=== PATIENT | female | born 1935 | race Caucasian/White ===

== ENCOUNTER 2017-05-23 13:36 | Inpatient (IN) | payer OTHER, MEDICARE ==
[~2017-05-23] VITALS: Ht 152.4 cm; Wt 113.9 kg
[2017-05-23] MEDS ORDERED: AMLODIPINE BESY10 M1 PO (13:48)
[2017-05-23] MEDS ORDERED: POTASSIUM CHLO20 ME2 PO (13:49)
[2017-05-23] MEDS ORDERED: LOSARTAN-HCTZ1 EAC2 PO (13:49)
[2017-05-23] MEDS ORDERED: FUROSEMIDE40 M1 PO (13:49)
[2017-05-23] MEDS ORDERED: BYSTOLIC10 M1 PO (13:49)
[2017-05-23] MEDS ORDERED: MYRBETRIQ50 M1 PO (13:52)
[2017-05-23] MEDS ORDERED: DEXAMETHASONE2 M1 PO (13:54)
[2017-05-23] MEDS ORDERED: CLONIDINE HCL0.3 M1 PO (13:54)
[2017-05-23] MEDS ORDERED: WARFARIN SODIUM3 M1 PO (13:55)
[2017-05-23] MEDS ORDERED: WARFARIN SODIUM1 M1 PO (13:56)
[2017-05-23] MEDS ORDERED: DOXAZOSIN MESYLA2 M1 PO (13:57)
[2017-05-23] MEDS ORDERED: PHENYTOIN SODI100 MG PO (13:57)
--- NOTE | 2017-05-23 14:12 | ED MVC/FALL/TRAUMA COMPLAINT ---
History of Present Illness General Chief Complaint: Fall Stated Complaint: BIBA FALL Source: patient, EMS Exam Limitations: clinical condition, poor historian Vital Signs & Intake/Output Vital Signs & Intake/Output Vital Signs Date Time Temp Pulse Resp B/P B/P Pulse O2 O2 Flow FiO2 Mean Ox Delivery Rate 05/23 1539 98.8 72 20 145/92 96 Room Air 05/23 1352 98.4 69 18 102/63 97 Room Air Allergies Uncoded Allergies: Allergy Other N Food Allergies NKA Med Allergies NKDA Reconcile Medications Amlodipine Besylate 10 MG TABLET 1 TAB PO DAILY HEART HEALTH (Reported) Clonidine HCl 0.3 MG TABLET 1 TAB PO QPM ANXIETY (Reported) Dexamethasone 2 MG TABLET 1 TAB PO DAILY AC INFLAMMATION (Reported) Doxazosin Mesylate 2 MG TABLET 1 TAB PO DAILY URINARY RETENTION (Reported) Furosemide 40 MG TABLET 1 TAB PO DAILY HEART HEALTH (Reported) Losartan/Hydrochlorothiazide (Losartan-Hctz 100-25 MG Tab) 100 MG-25 MG TABLET 1 TAB PO DAILY HTN (Reported) Mirabegron (Myrbetriq) 50 MG TAB.ER.24H 1 TAB PO DAILY BLADDER (Reported) Nebivolol HCl (Bystolic) 10 MG TABLET 1 TAB PO DAILY HTN (Reported) Phenytoin Sodium Extended 100 MG CAPSULE 3 CAP PO QPM ANTICONVULSANT ( Reported) Potassium Chloride 20 MEQ TAB.ER.PRT 1 TAB PO DAILY HEART HEALTH (Reported) Warfarin Sodium 3 MG TABLET 1 TAB PO DAILY HEART HEALTH (Reported) Warfarin Sodium 1 MG TABLET 0.5 TAB PO COUMADIN Sat HEART HEALTH ( Reported) Triage Note: BIBA FROM HOME, PATIENT IS ALERT X1, CONFUSED AND FORGETFUL AT TIMES. PER EMS PATIENT WAS AMBULATING AROUND HOME WITH ROLLING WALKER WHEN SHE BECAME WEAK AND LOWERED HERSELF TO THE GROUND. PATIENT DENIES HEAD, NECK OR BACK PAIN, DENIES LOC OR HITTING HEAD. NO OBVIOUS SIGNS OF TRAUMA TO HEAD/FACE. Triage Nurses Notes Reviewed? 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 Per family she has been having weakness with needing to sit on the ground on attempting to use the walker. It happened today but has been happening in the last few days. Today's fall was unwitnessed. She also has been more incontinent than usual. She was diagnosed with a UTI but the family has not picked up the prescription yet. No fever, chills. Robert does not offer a lot of information but answers yes or no. She responds no to questions. Past History Travel History Traveled to [place] past 21 day No Medical History Any Pertinent Medical History? see below for history Neurological: ? FRONTAL BRAIN TUMOR Cardiovascular: hypertension Pneumonia Vaccine: 10/16/08 Influenza Vaccine: 12/16/08 Psychosocial History Who do you live with Father Services at Home None What is your primary language Cook Islander Review of Systems Review of Systems Constitutional: Reports: malaise, weakness. Denies: chills, fever. Eyes: Reports: no symptoms. Ears, Nose, Throat, Mouth: Reports: no symptoms. Respiratory: Denies: cough, short of breath, sputum production. Cardiovascular: Denies: chest pain. Gastrointestinal/Abdominal: Denies: abdominal pain, diarrhea, vomiting. Genitourinary: Reports: no symptoms. Musculoskeletal: Reports: see HPI (RECURRENT FALLS). Skin: Reports: no symptoms. Neurological/Psychological: Reports: no symptoms. All Other Systems: Reviewed and Negative Physical Exam Physical Exam General Appearance: alert, awake, mild distress, moderate distress, obese Head: atraumatic, normal appearance Eyes: Bilateral: PERRL. Ears, Nose, Throat, Mouth: DRY MUCUS MEMBRANES Neck: normal inspection, supple, full range of motion Respiratory: normal breath sounds, chest non-tender, no respiratory distress Cardiovascular: regular rate/rhythm Gastrointestinal: soft, non-tender Neurologic/Psych: awake, alert, GENERALIZED WEAKNESS Progress Plan of Care: Orders Procedure Date/time Status Consistent Carbohydrate 1 05/24 B Active LACTIC ACID 05/23 1712 Active ED Holding Orders 05/23 1700 Active Admit to inpatient 05/23 1700 Active Vital Signs 05/23 1700 Active Patient Data 05/23 1652 Active Add-on Test (ER Only) 05/23 1511 Active Straight Cath 05/23 1412 Active CULTURE,URINE 05/23 1412 Active BLOOD CULTURE 05/23 1412 Active URINE DRUGS OF ABUSE 05/23 1412 Complete URINALYSIS 05/23 1412 Complete TROPONIN LEVEL 05/23 1412 Active PARTIAL THROMBOPLASTIN TIME 05/23 1412 Complete PROTHROMBIN TIME 05/23 141 Complete LACTIC ACID 05/23 141 Active DILANTIN 05/23 141 Active COMPREHENSIVE METABOLIC PANEL 05/23 141 Active CBC WITHOUT DIFFERENTIAL 05/24 1411 Active EKG 05/23 141 Active Current Medications Sig/James Start time Last Medication Dose Stop Time Status Admin Sodium Chloride 1,000 ML Q8H 05/23 1630 UNVr (Normal Saline 0.9%) Laboratory Tests 05/23/17 1530: Phenytoin 18.8 05/23/17 1530: Anion Gap 9, Estimated GFR > 60, BUN/Creatinine Ratio 33.8 H, Glucose 137 H, Lactic Acid Pending, Calcium 9.6, Total Bilirubin 0.6, AST 25, ALT 33, Alkaline Phosphatase 82, Troponin I < 0.01, Total Protein 7.0, Albumin 4.0, Globulin 3.0, Albumin/Globulin Ratio 1.3, PT 26.5 H, INR 2.41 H, APTT 37, Urine Opiates Screen < 100, Methadone Screen < 40, Barbiturate Screen < 60, Ur Phencyclidine Scrn < 6.00, Amphetamines Screen < 100, U Benzodiazepines Scrn < 85, Urine Cocaine Screen < 50, Urine Cannabis Screen 78.40 H, Urine Color YEL, Urine Clarity CLEAR, Urine pH 7.0, Ur Specific [place] 1.010, Urine Protein NEG, Urine Ketones NEG, Urine Nitrite POS H, Urine Bilirubin NEG, Urine Urobilinogen 0.2, Ur Leukocyte Esterase TRACE H, Ur Microscopic SEDIMENT EXAMINED, Urine RBC RARE , Urine WBC 3-5 H, Ur Epithelial Cells RARE, Urine Bacteria PACKD H, Urine Mucus RARE, Urine Hemoglobin NEG, Urine Glucose NEG Microbiology 05/23 153 URINE ROUT: Urine Culture - RECD 05/23 1530 BLOOD: Blood Culture - RECD 05/23 1505 BLOOD: Blood Culture - RECD Diagnostic Imaging: Viewed by Me: Radiology Read, CT Scan. Discussed w/RAD: Radiology Read, CT Scan. Radiology Impression: PATIENT: LUCHO RENEE PRESENT AGE: 82 PATIENT ACCOUNT NO: [id number] : 34 LOCATION: [facility] ORDERING PHYSICIAN: Nohemy Villeda MD SERVICE DATE: 05/23/17-1504 EXAM TYPE: CAT - CT HEAD WO IV CONTRAST EXAMINATION: CT HEAD WITHOUT CONTRAST CLINICAL INFORMATION: Meningioma. Rule out bleed. Multiple falls from home. COMPARISON: Brain MRI 01/16/2017. TECHNIQUE: Contiguous axial imaging was performed from the skull base to vertex without intravenous administration of contrast. This study is moderate to severely degraded by motion artifact. Some limited series were repeated however these repeat images are also motion degraded. DLP: 1561 mGy-cm FINDINGS: There is redemonstration of postoperative findings related to resection of frontal lobe meningioma. 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 As a result there is mass effect on the frontal horns which are partly effaced and posteriorly displaced. Compared to the prior MRI of 01/16/2017 mass effect on the frontal horns has increased although more detailed comparison of the mass and associated edema is difficult due to the severe motion degradation. As a result of the mass effect there is 3 mm of rightward midline shift at the level of the septum pellucidum. There is no intracranial hemorrhage or CT evidence of large territory infarction. The paranasal sinuses and mastoid air cells are grossly clear. IMPRESSION: 1. Moderate to severely motion degraded study. 2. Redemonstration of bifrontal meningioma which appears similar compared with 01/16/2017 with surrounding vasogenic edema. 3. Mass effect related to the tumor and edema causes worsening effacement of the bilateral frontal horns. There is 3 mm of rightward midline shift. 4. No intracranial hemorrhage or CT evidence of large territory infarction. DICTATED BY: Delio Penny MD DATE/TIME DICTATED:05/23/171604 NETWORK SUPPORT ENGINEER:JONATHON DATE/TIME TRANSCRIBED:05/23/171604 CONFIDENTIAL, DO NOT COPY WITHOUT APPROPRIATE AUTHORIZATION. <Electronically signed in Other Vendor System> SIGNED BY: Delio Penny MD 05/23/17 1619 CXR Impression: PATIENT: LUCHO RENEE PRESENT AGE: 82 PATIENT ACCOUNT NO: [id number] : 34 LOCATION: [facility] ORDERING PHYSICIAN: Nohemy Villeda MD SERVICE DATE: 05/23/17 EXAM TYPE: RAD - XRY-PORTABLE CHEST XRAY EXAMINATION: XR PORTABLE CHEST CLINICAL INFORMATION: Rule out pneumonia. Weakness. COMPARISON: Chest radiograph dated January 30, 2009. TECHNIQUE: Portable frontal view of the chest was obtained. FINDINGS: The cardiac silhouette is normal in size. There is atherosclerotic calcification of the aortic knob. The pulmonary vasculature appears within normal limits. No pneumonia. No pneumothorax or pleural effusion. Lung apices are obscured by the patient's chin. IMPRESSION: No significant change in the appearance of the heart or lungs when compared with prior study dated January 30, 2009. No acute disease. DICTATED BY: Chalo Cornelius MD DATE/TIME DICTATED:05/23/171608 NETWORK SUPPORT ENGINEER:JONATHON DATE/TIME TRANSCRIBED:05/23/171608 CONFIDENTIAL, DO NOT COPY WITHOUT APPROPRIATE AUTHORIZATION. <Electronically signed in Other Vendor System> SIGNED BY: Chalo Cornelius MD 05/23/171613 Departure Departure Time of Disposition: 1639 Disposition: STILL A PATIENT Condition: Stable Clinical Impression Primary Impression: UTI (urinary tract infection) Secondary Impressions: Weakness Referrals: Anai WILSON,Dennis Dominguez (PCP/Family) Departure Forms: Customer Survey General Discharge Information Admission Note Spoke With: Willian LIU,Sidra Documentation of Exam: Documentation of any treatments & extenuating circumstances including Concerns Regarding Discharge (functional status, medication knowledge or non-compliance, living conditions, etc.) that warrant an admission rather than observation: [ PATIENT WITH MULTIPLE FALLS ON COUMADIN, NON RESECATABLE MENINGIOMAS, PATIENT FELL TODAY WITH WALKER, MULTIPLE FALLS IN LAST 2 WEEKS. RECURRENT UTI'S PER PCP , WAS NOT ON PRESCRIBED ABX FOR PAST FEW DAYS, WILL REQUIRE IV ABX, FLUIDS,PT EVALUATION, CASE MANAGEMENT. UNABLE TO PERFORM ADL'S TO HER BASELINE, POSSIBLE SHORT TERM REHAB REQUIREMENT]
[2017-05-23 15:50] LABS: PT 26.5 SEC (9.4-12.5); PTT 37 SEC (25-37)
--- NOTE | 2017-05-23 16:14 | RADIOLOGY REPORT ---
EXAMINATION: XR PORTABLE CHEST CLINICAL INFORMATION: Rule out pneumonia. Weakness. COMPARISON: Chest radiograph dated January 30, 2009. TECHNIQUE: Portable frontal view of the chest was obtained. FINDINGS: The cardiac silhouette is normal in size. There is atherosclerotic calcification of the aortic knob. The pulmonary vasculature appears within normal limits. No pneumonia. No pneumothorax or pleural effusion. Lung apices are obscured by the patient's chin. IMPRESSION: No significant change in the appearance of the heart or lungs when compared with prior study dated January 30, 2009. No acute disease.
--- NOTE | 2017-05-23 16:19 | CT SCAN REPORT ---
EXAMINATION: CT HEAD WITHOUT CONTRAST CLINICAL INFORMATION: Meningioma. Rule out bleed. Multiple falls from home. COMPARISON: Brain MRI 01/16/2017. TECHNIQUE: Contiguous axial imaging was performed from the skull base to vertex without intravenous administration of contrast. This study is moderate to severely degraded by motion artifact. Some limited series were repeated however these repeat images are also motion degraded. DLP: 1561 mGy-cm FINDINGS: There is redemonstration of postoperative findings related to resection of frontal lobe meningioma. 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 As a result there is mass effect on the frontal horns which are partly effaced and posteriorly displaced. Compared to the prior MRI of 01/16/2017 mass effect on the frontal horns has increased although more detailed comparison of the mass and associated edema is difficult due to the severe motion degradation. As a result of the mass effect there is 3 mm of rightward midline shift at the level of the septum pellucidum. There is no intracranial hemorrhage or CT evidence of large territory infarction. The paranasal sinuses and mastoid air cells are grossly clear. IMPRESSION: 1. Moderate to severely motion degraded study. 2. Redemonstration of bifrontal meningioma which appears similar compared with 01/16/2017 with surrounding vasogenic edema. 3. Mass effect related to the tumor and edema causes worsening effacement of the bilateral frontal horns. There is 3 mm of rightward midline shift. 4. No intracranial hemorrhage or CT evidence of large territory infarction.
--- NOTE | 2017-05-23 17:07 | History & Physical ---
Prince LIU,Olegario 05/23/17 2060: General Information and HPI History of Present Illness: Ms. Hutchins is an 82-year-old female with past medical history of meningioma followed by Dr. Hand and hypertension who presents after fall. The patient was unable to provide a history. History is obtained from her daughter, Kirstin. Per her daughter, the patient has had a resection of a meningioma many years ago. The meningioma has since regrown and it is considered unresectable. Over the past 5 months, the daughter notes that the patient has had a slow cognitive decline and personality change. She was previously able to talk normally and have a conversation. She now does not talk much, sings continuously, and is often confused. The daughter also notes that the patient has had recurrent UTIs, about 1-2 per month, for the past 6 months. She also has been falling frequently , 2 times in the past week. In the past, the daughter notes that the tumor caused the patient to have lower extremity weakness. Today, the daughter brought in the patient for evaluation after an acute fall today. The patient was walking to her chair and her legs gave out. The patient does not ever express any complaints and has regular bowel movements. On interview today, the patient does not have any complaints. Allergies/Medications Allergies: Uncoded Allergies: Allergy Other N Food Allergies NKA Med Allergies NKDA Home Med list Amlodipine Besylate 10 MG TABLET 1 TAB PO DAILY HEART HEALTH (Reported) Clonidine HCl 0.3 MG TABLET 1 TAB PO QPM ANXIETY (Reported) Dexamethasone 2 MG TABLET 1 TAB PO DAILY AC INFLAMMATION (Reported) Doxazosin Mesylate 2 MG TABLET 1 TAB PO DAILY URINARY RETENTION (Reported) Furosemide 40 MG TABLET 1 TAB PO DAILY HEART HEALTH (Reported) Losartan/Hydrochlorothiazide (Losartan-Hctz 100-25 MG Tab) 100 MG-25 MG TABLET 1 TAB PO DAILY HTN (Reported) Mirabegron (Myrbetriq) 50 MG TAB.ER.24H 1 TAB PO DAILY BLADDER (Reported) Nebivolol HCl (Bystolic) 10 MG TABLET 1 TAB PO DAILY HTN (Reported) Phenytoin Sodium Extended 100 MG CAPSULE 3 CAP PO QPM ANTICONVULSANT ( Reported) Potassium Chloride 20 MEQ TAB.ER.PRT 1 TAB PO DAILY HEART HEALTH (Reported) Warfarin Sodium 3 MG TABLET 1 TAB PO DAILY HEART HEALTH (Reported) Warfarin Sodium 1 MG TABLET 0.5 TAB PO COUMADIN Sat HEART HEALTH ( Reported) Past History Travel History Traveled to [place] past 21 day No Medical History Neurological: ? FRONTAL BRAIN TUMOR EENT: NONE Cardiovascular: hypertension Respiratory: bronchitis Gastrointestinal: NONE Hepatic: NONE Renal: NONE Musculoskeletal: NONE Psychiatric: NONE Endocrine: NONE Blood Disorders: DVT Cancer(s): NONE SUPER[employer] WRAPPING RO[employer]/Reproductive: NONE Pneumonia Vaccine: 10/16/08 Influenza Vaccine: 12/16/08 Surgical History Surgical History: unobtainable Past Family/Social History Psychosocial History Services at Home: None ETOH Use: denies use Illicit Drug Use: denies illicit drug use Review of Systems Review of Systems Constitutional: Reports: no symptoms. EENTM: Reports: no symptoms. Cardiovascular: Reports: no symptoms. Respiratory: Reports: no symptoms. GI: Reports: no symptoms. Genitourinary: Reports: see HPI. Musculoskeletal: Reports: see HPI. Skin: Reports: no symptoms. Neurological/Psychological: Reports: see HPI. Hematologic/Endocrine: Reports: no symptoms. Immunologic/Allergic: Reports: no symptoms. All Other Systems: Reviewed and Negative Exam & Diagnostic Data Last 24 Hrs of Vital Signs/I&O Vital Signs Date Time Temp Pulse Resp B/P B/P Pulse O2 O2 Flow FiO2 Mean Ox Delivery Rate 05/23 1539 98.8 72 20 145/92 96 Room Air 05/23 1352 98.4 69 18 102/63 97 Room Air Intake & Output 05/23 1600 05/23 0800 05/23 0000 Intake Total Output Total 200 Balance -200 Output, Urine 200 Physical Exam General Appearance Alert, Cooperative, No Acute Distress, singing, occasionally answers questions HEENT Atraumatic, PERRLA, EOMI Cardiovascular Regular Rate, Normal S1, Normal S2 Lungs Clear to Auscultation, Normal Air Movement Abdomen Normal Bowel Sounds, Soft, No Tenderness Extremities chronic appearing leather-like skin changes with areas of hyperpigmentation on the bilateral lower extremities., large, edematous lower extremities Last 24 Hrs of Labs/Anil: Laboratory Tests 05/23/17 1705: Lactic Acid 1.8, CBC w Diff NO MAN DIFF REQ, RBC 4.49, MCV 97.1, MCH 32.4 H, MCHC 33.4, RDW 13.1, MPV 9.0, Gran % 74.8, Lymphocytes % 17.1 L, Monocytes % 6.8, Eosinophils % 1.0, Basophils % 0.3, Absolute Granulocytes 7.4 H, Absolute Lymphocytes 1.7, Absolute Monocytes 0.7 H, Absolute Eosinophils 0.1, Absolute Basophils 0 05/23/17 153: Phenytoin 18.8 05/23/17 153: Anion Gap 9, Estimated GFR > 60, BUN/Creatinine Ratio 33.8 H, Glucose 137 H, Lactic Acid Pending, Calcium 9.6, Total Bilirubin 0.6, AST 25, ALT 33, Alkaline Phosphatase 82, Troponin I < 0.01, Total Protein 7.0, Albumin 4.0, Globulin 3.0, Albumin/Globulin Ratio 1.3, PT 26.5 H, INR 2.41 H, APTT 37, Urine Opiates Screen < 100, Methadone Screen < 40, Barbiturate Screen < 60, Ur Phencyclidine Scrn < 6.00, Amphetamines Screen < 100, U Benzodiazepines Scrn < 85, Urine Cocaine Screen < 50, Urine Cannabis Screen 78.40 H, Urine Color YEL, Urine Clarity CLEAR, Urine pH 7.0, Ur Specific [place] 1.010, Urine Protein NEG, Urine Ketones NEG, Urine Nitrite POS H, Urine Bilirubin NEG, Urine Urobilinogen 0.2, Ur Leukocyte Esterase TRACE H, Ur Microscopic SEDIMENT EXAMINED, Urine RBC RARE , Urine WBC 3-5 H, Ur Epithelial Cells RARE, Urine Bacteria PACKD H, Urine Mucus RARE, Urine Hemoglobin NEG, Urine Glucose NEG Microbiology 05/23 1529 URINE ROUT: Urine Culture - RECD 05/23 1530 BLOOD: Blood Culture - RECD 05/23 1505 BLOOD: Blood Culture - RECD Assessment/Plan Assessment: Ms. Hutchins is an 82-year-old female with past medical history of meningioma followed by Dr. Hand, DVT on warfarin, and hypertension who presents after fall. On presentation, vital signs were T 98.4, HR 69, RR 18, BP 102/63, saturating 97 % on room air. Laboratories were significant for normal CBCs, chloride 97, monoxide 32, BUN 27, glucose 137, normal LFTs, troponin less than 0.01, INR 2.41. Urinalysis revealed positive nitrite, positive leukocyte esterase, 35 WBCs. Urine toxicology so positive cannabis and phenytoin in therapeutic range. Head CT showed redemonstration of bifrontal meningioma which appears similar to November study, mass effect related to tumor the 3 mm rightward midline shift, and no intracranial hemorrhage or CT evidence of large territory infarction. Chest x-ray revealed no acute process. She received 1 L normal saline and ceftriaxone in the emergency room. She will be admitted to general medicine and treated for the following problems: 1. Urinary tract infection 2. Fall 3. Bifrontal meningioma 4. Lower extremity edema #Urinary tract infection: Patient is asymptomatic but is unclear if she is able to express her complaints. She does have a mildly positive urinalysis and history of recurrent UTIs. -Renal ultrasound -Ceftriaxone -Follow urine culture -gentle IVF -Hold furosemide #Fall: Patient has a history of a meningioma and has been falling requently in the past couple weeks. Likely related to progression of her tumor in setting of deconditioning. -Neurology consult -PT evaluation -Fall precautions #Lower extremity edema: Patient has bilateral lower extremity edema with chronic skin changes. Patient is on warfarin as low probability of DVT but there was pain on exam. -Ultrasound lower extremities #Chronic medical problems: -Continue warfarin, daily INR -Continue other home medications DVT prophylaxis with warfarin Regular diet Full code As Ranked By This Provider Problem List: 1. UTI (urinary tract infection) Core Measures/Misc (12/02) Acute Coronary Syndrome ACS Diagnosis: No Congestive Heart Failure Congestive Heart Failure Diagnosis No Cerebrovascular Accident CVA/TIA Diagnosis: No VTE (View Protocol) VTE Risk Factors Age>40 No Mechanical VTE Prophylaxis d/t Medical Contraindication No VTE Pharm Prophylaxis d/t NA PharmProphylax ordered Sepsis (View protocol) Sepsis Present: No MargieAnkur 05/23/17 1729: Resident Review Statement Resident Statement: examined this patient, discussed with sales and marketing intern, agreed with sales and marketing intern, discussed with family, reviewed EMR data (avail), discussed with nursing , discussed with case mgmt, reviewed images, amended to note Other Findings: This is 82-year-old woman with multiple comorbidities who was brought in for worsening confusion and physical deconditioning, gait instability, and recurrent falls. Patient has a past medical history of benign meningioma status post suceesful surgical resection in 2008 and relapse of her tumer ( per CT in Jan, 2017), essential hypertension, bilateral lower extremity DVTs in 2008 on Coumadin and multiple falls. She lives with her daughter. Had limited ambulation uses walker; she is non-communicative and most of the HPI was obtained from the daughter over the phone. Per her daughter after relapse of her tumer in 2017, patient has experienced a progressive decline in her mental/cognitive capacity which was coupled with physical decline, multiple falls, and recurrent UTIs. For the past two weeks family noticed a rapid decline of her progressively declining functional and cognitive capacity. Daughter noticed a change in smell and color of the urine and inform the primary care physician who called in amoxicillin today that has not been picked up. She had another episode of fall when she was trying to stand up from her chair no head trauma was reported no seizure like activity no loss of consciousness. ROS: Not obtainable, refer to HPI; vital signs: Initial hypotensive in the emergency room which was corrected with 1 L of normal saline; Physical exam: Head and neck: Mucous membranes are dry, atraumatic, scar of the previous surgery for tumor resection, PERR; neck: No carotid bruit, no LAD; heart: S1-S2 no murmur, lungs: Decreased air entry; abdomen is soft no suprapubic tenderness no guarding; bilateral lower extremity 3+ edema, skin changes due to chronic edema, tenderness without localization no redness no warmth no skin breakage. Neuro exam is not obtainable patient is not alert and oriented and is not following verbal commands. Initially in the emergency room patient was hypotensive 102/63 was given multiple normal saline and blood pressure improved 145/92. Remained afebrile no tachycardia no respiratory distress. Pertinent data UA: Positive nitrates and positive leukocyte esterase; WBC 3-5; packed with Bacteria CT scan of the head: #1 boyfriend several meningioma; stable compared with 01/16/2017 surrounded by vasogenic edema #2 mass effect related to the tumor and edema causes worsening effacement of frontal horns #3 three mm rightward midline shift CBC: Normal limits; sodium 138, potassium 4 BUN 27 BUN/creatinine ratio 33, INR 2.41 Lactic acid levels are pending Troponin is negative Urine toxicology positive for cannabis Phenytoin level 18.8 Assessment 82-year-old woman with complicated past medical history was admitted for failure to thrive and cognitive decline, gait instability and fall. List of active problems # Failure to thrive, gait instability and fall: Most possibly secondary to recurrence of her men angioma. Recurrent UTI could be a contributory factor to drastic changes of her cognitive and physical capacity. # Recurrent UTI: Most possibly secondary to immobility and poor hygiene needs to rule out obstruction. # prerenal azothgemia: Poor oral intake in a terminally sick patients # essential hypertension # chronic lower extremity edema # history of provoked DVT: Reportedly worsening edema and tenderness and physical exam; immobility; consider ruling out recurrent DVT Plan * Admit to general medical floor * Fall precaution; seizure precaution; aspiration precaution * Continue all of her home antihypertensive medication except for furosemide 40 mg and encourage po intake * Gentle hydration with D5-1/2 half saline 1000 ml @ 75 mL per hour 1 L * PT evaluation * Continue phenytoin and dexamethasone * History of provoked DVT INR within therapeutic range continue warfarin continue warfarin 0.5 mg on Saturday and Saturday and 3 mg on Saturday and Saturday and ; * Reevaluate the need of chronic anticoagulation due to the fact that patient had a provoked DVT and has been anticoagulated for a proper amounts of time and additional risks due to risk of fall. * IV ceftriaxone 1000 mg every 12 hours pending urine culture and blood culture results * Obtain renal ultrasound to rule out obstruction * elevate lower extremity * Repeat biochemistry a CBC in the a.m. DVT prophylaxis- on warfarin Proper appearing pathway- avoids it did not extend narcotics FC
[2017-05-23 17:17] LABS: ABSOLUTE BASOPHIL COUNT 0 /CUMM (0.0-0.2); ABSOLUTE EOSINOPHIL COUNT 0.1 /CUMM (0.0-0.7); ABSOLUTE GRANULOCYTE CT 7.4 /CUMM (1.4-6.5); ABSOLUTE LYMPH COUNT 1.7 /CUMM (1.2-3.4); ABSOLUTE MONOCYTE COUNT 0.7 /CUMM (0.10-0.60); BASOPHIL % 0.3 % (0.0-2.0); GRANULOCYTE % 74.8 % (42.2-75.2); HEMATOCRIT 43.5 % (37-47); MEAN CORPUSCULAR HGB 32.4 PG (27.0-31.0); MEAN CORPUSCULAR HGB CONC 33.4 G/DL (33.0-37.0); MEAN CORPUSCULAR VOLUME 97.1 FL (81.0-99.0); PLATELET COUNT 233 /CUMM (130-400); RBC DISTRIBUTION WIDTH 13.1 % (11.5-14.5); RED BLOOD CELL CT 4.49 /CUMM (4.20-5.40); WHITE BLOOD CELL COUNT 9.9 /CUMM (4.8-10.8)
--- NOTE | 2017-05-23 18:05 | PN- Att Addend ---
Attending Addendum Attending Brief Note 82 y/o F with past medical history of meningioma followed by Dr. Hand and hypertension, previous history of DVT many years ago still remains on Coumadin with therapeutic INR today p/w fall. Patient Has been declining over the last 5 months. She has resection of her b/l meningiona in 2008, and 5 montys ago ahd recurrence of the meningioma. Since then she has a decline, more rapid over the last couple of weeks. She just felt very weak, almost letdown today while she was trying to get up and walk. Patient herself denies any complaints, any pain. Per daughter, Urine was smelling foul. Patient herself denies any fevers, chills, nausea, vomiting or any kind of pain. The daughter also told the ER doc that patient is getting cannabis for the treatment of these meningiomas. There is also some mass effect on the CT but this was also present in the previous imaging. Vital Signs Date Time Temp Pulse Resp B/P B/P Pulse O2 O2 Flow FiO2 Mean Ox Delivery Rate 05/23 1539 98.8 72 20 145/92 96 Room Air 05/23 1352 98.4 69 18 102/63 97 Room Air on exam; awake, confused, nad. cv; s1,s2, rrr resp; clear abd; soft, nt, bs+ ext; 2+ edema b/l with chronic venous stasis changes. Laboratory Tests 05/23 05/23 1705 1530 Chemistry Lactic Acid (0.7 - 2.1 mmol/L) 1.8 Hematology CBC w Diff NO MAN DIFF REQ WBC (4.8 - 10.8 /CUMM) 9.9 RBC (4.20 - 5.40 /CUMM) 4.49 Hgb (12.0 - 16.0 G/DL) 14.6 Hct (37 - 47 %) 43.5 MCV (81.0 - 99.0 FL) 97.1 MCH (27.0 - 31.0 PG) 32.4 H MCHC (33.0 - 37.0 G/DL) 33.4 RDW (11.5 - 14.5 %) 13.1 Plt Count (130 - 400 /CUMM) 233 MPV (7.4 - 10.4 FL) 9.0 Gran % (42.2 - 75.2 %) 74.8 Lymphocytes % (20.5 - 51.1 %) 17.1 L Monocytes % (1.7 - 9.3 %) 6.8 Eosinophils % (0 - 5 %) 1.0 Basophils % (0.0 - 2.0 %) 0.3 Absolute Granulocytes (1.4 - 6.5 /CUMM) 7.4 H Absolute Lymphocytes (1.2 - 3.4 /CUMM) 1.7 Absolute Monocytes (0.10 - 0.60 /CUMM) 0.7 H Absolute Eosinophils (0.0 - 0.7 /CUMM) 0.1 Absolute Basophils (0.0 - 0.2 /CUMM) 0 Toxicology Phenytoin (10.0 - 20.0 ug/mL) 18.8 03/08 1530 Chemistry Sodium (137 - 145 mmol/L) 138 Potassium (3.5 - 5.1 mmol/L) 4.0 Chloride (98 - 107 mmol/L) 97 L Carbon Dioxide (22 - 30 mmol/L) 32 H Anion Gap (5 - 16) 9 BUN (7 - 17 mg/dL) 27 H Creatinine (0.5 - 1.0 mg/dL) 0.8 Estimated GFR (>60 ml/min) > 60 BUN/Creatinine Ratio (7 - 25 %) 33.8 H Glucose (65 - 99 mg/dL) 137 H Lactic Acid (0.7 - 2.1 mmol/L) Pending Calcium (8.4 - 10.2 mg/dL) 9.6 Total Bilirubin (0.2 - 1.3 mg/dL) 0.6 AST (14 - 36 U/L) 25 ALT (9 - 52 U/L) 33 Alkaline Phosphatase (<127 U/L) 82 Troponin I (< 0.11 ng/ml) < 0.01 Total Protein (6.3 - 8.2 g/dL) 7.0 Albumin (3.5 - 5.0 g/dL) 4.0 Globulin (1.9 - 4.2 gm/dL) 3.0 Albumin/Globulin Ratio (1.1 - 2.2 %) 1.3 Coagulation PT (9.4 - 12.5 SEC) 26.5 H INR (0.90 - 1.19) 2.41 H APTT (25 - 37 SEC) 37 Toxicology Urine Opiates Screen (>2000 NG/ML) < 100 Methadone Screen (>300 NG/ML) < 40 Barbiturate Screen (>200 NG/ML) < 60 Ur Phencyclidine Scrn (>25 NG/ML) < 6.00 Amphetamines Screen (>1000 NG/ML) < 100 U Benzodiazepines Scrn (>200 NG/ML) < 85 Urine Cocaine Screen (>300 NG/ML) < 50 Urine Cannabis Screen (>50 NG/ML) 78.40 H Urines Urine Color (YEL,AMB,STR) YEL Urine Clarity (CLEAR) CLEAR Urine pH (5.0 - 8.0) 7.0 Ur Specific [place] (1.001 - 1.035) 1.010 Urine Protein (NEG,<30 MG/DL) NEG Urine Ketones (NEG) NEG Urine Nitrite (NEG) POS H Urine Bilirubin (NEG) NEG Urine Urobilinogen (0.1 - 1.0 EU/dl) 0.2 Ur Leukocyte Esterase (NEG) TRACE H Ur Microscopic SEDIMENT EXAMINED Urine RBC (0 - 5 /HPF) RARE Urine WBC (0 - 2 /HPF) 3-5 H Ur Epithelial Cells (NONE,FEW) RARE Urine Bacteria (NEG/NONE) PACKD H Urine Mucus (FEW,NONE) RARE Urine Hemoglobin (NEG) NEG Urine Glucose (N MG/DL) NEG All imaging reviewed. EKG: Poor quality EKG but looks sinus. A/P; 82 y/o F with past medical history of meningioma followed by Dr. Hand, DVT on coumadin and hypertension will be admitted to medicine floor with a fall, failure to thrive and generalized weakness and some confusion. There is also question of UTI. Patient will be given gentle IV hydration. We will hold Lasix temporarily for now while she is getting IV hydration. She was given IV ceftriaxone in the emergency room for question of UTI. We can continue that and follow-up on cultures. If cultures are negative then this can be discontinued. Will obtain a lower extremity Doppler ultrasound bilateral. We will dose Coumadin according to the INR. Will continue the rest of her medications. Dilantin level therapeutic. We'll continue her Decadron. Neurology will be consulted. DVT prophylaxis: Patient on Coumadin with therapeutic INR. PT evaluation will be obtained. Patient might need placement in rehabilitation.
[2017-05-23 18:45] VITALS: BP 138/62
--- NOTE | 2017-05-23 21:48 | ULTRASOUND REPORT ---
EXAMINATION: US TRIPLEX OF LOWER EXTREMITIES, BILATERAL CLINICAL INFORMATION: Swelling of the bilateral lower extremities. DVT. COMPARISON: None TECHNIQUE: Color-flow triplex imaging with spectral analysis and compression Doppler were performed on the lower extremities. FINDINGS: The study was limited due to patient body habitus. The patient was not able to cooperate for imaging either. The patient could not tolerate compression of the inferior aspect of the left superficial femoral vein. Otherwise, respiratory variation, normal compression and augmented flow are noted throughout the lower extremities. The visualized common femoral vein, superficial femoral vein, profunda femoral vein, popliteal vein and midcalf peroneal and posterior tibial venous segments show no evidence of deep venous thrombosis. There is no Juarez's cyst. IMPRESSION: Limited scan, as described above, but no evidence of deep vein thrombosis within the lower extremities bilaterally.
--- NOTE | 2017-05-23 21:55 | ULTRASOUND REPORT ---
EXAMINATION: US RETROPERITONEAL COMPLETE (RENAL) CLINICAL INFORMATION: Recurrent urinary tract infections. COMPARISON: None TECHNIQUE: Real-time imaging of the kidneys and bladder. FINDINGS: RIGHT KIDNEY: 9.6 x 4.3 x 3.9 cm (SAG x AP x TRV). The kidney is normal in size, contour, and echogenicity. Renal cortical thickness is normal. 1 cm simple cyst of the right mid kidney. No calculi. No hydronephrosis. LEFT KIDNEY: 10.9 x 4.3 x 5.1 cm (SAG x AP x TRV). The kidney is normal in size, contour, and echogenicity. Renal cortical thickness is normal. No calculi or focal parenchymal lesions. No hydronephrosis. BLADDER: Bladder is collapsed and not well seen. Bilateral ureteral jets are not demonstrated. IMPRESSION: No hydronephrosis bilaterally. The urinary bladder is collapsed and not well seen. .
[2017-05-23 22:00] VITALS: BP 138/70
[2017-05-24 06:38] VITALS: BP 134/68
--- NOTE | 2017-05-24 06:49 | PN- Housestaff ---
See Addendum Subjective Follow-up For: UTI, fall Subjective: No overnight events. Patient is comfortable without any complaints this morning. Review of Systems Constitutional: Reports: no symptoms. EENTM: Reports: no symptoms. Cardiovascular: Reports: no symptoms. Respiratory: Reports: no symptoms. Gastrointestinal: Reports: no symptoms. Genitourinary: Reports: no symptoms. Musculoskeletal: Reports: no symptoms. Skin: Reports: no symptoms. Neurological/Psychological: Reports: no symptoms. Hematologic/Endocrine: Reports: no symptoms. Immunologic/Allergic: Reports: no symptoms. Objective Last 24 Hrs of Vital Signs/I&O Vital Signs Date Time Temp Pulse Resp B/P B/P Pulse O2 O2 Flow FiO2 Mean Ox Delivery Rate 05/24 0638 97.4 59 20 134/68 94 05/23 2200 98.1 73 20 138/70 95 Room Air 05/23 2129 73 138/70 05/23 1845 98.2 70 19 138/62 93 Room Air 05/23 1811 98.4 76 18 142/74 93 Room Air 05/23 1539 98.8 72 20 145/92 96 Room Air 05/23 1352 98.4 69 18 102/63 97 Room Air Intake & Output 05/24 0800 05/24 0000 05/23 1600 Intake Total 720 710 Output Total 200 Balance 720 710 -200 Intake, IV 600 350 Intake, Oral 120 360 Output, Urine 200 Patient 113.852 kg Weight Weight Bed scale Measurement Method Physical Exam General Appearance: Alert, Cooperative, No Acute Distress Skin: stable Cardiovascular: Regular Rate, Normal S1, Normal S2 Lungs: Clear to Auscultation Abdomen: Normal Bowel Sounds, Soft, No Tenderness Current Medications: Current Medications Sig/James Start time Last Medication Dose Route Stop Time Status Admin Amlodipine Besylate 10 MG DAILY 05/24 1000 AC PO Ceftriaxone Sodium 1,000 MG DAILY 05/24 1000 DC IV Ceftriaxone Sodium 1,000 MG Q12 05/24 1000 AC IV Ceftriaxone Sodium 0 .STK-MED ONE 05/23 1708 DC .ROUTE Ceftriaxone Sodium 1,000 MG ONCE ONE 05/23 1630 DC 05/23 IV 05/23 1631 1709 Clonidine 0.3 MG BID 05/23 2200 AC 05/23 PO 2129 Dexamethasone 1 MG DAILY 05/24 1000 DC PO Dexamethasone 2 MG DAILY 05/24 1000 AC PO Dextrose/Sodium 1,000 ML Q13H 05/23 1745 AC 05/24 Chloride IV 0528 Doxazosin Mesylate 2 MG AT BEDTIME 05/230 AC 05/23 PO 2129 Enoxaparin Sodium 40 MG DAILY 05/24 1000 CAN SC Hydrochlorothiazide 25 MG DAILY 05/24 1000 AC PO Losartan Potassium 100 MG DAILY 05/24 1000 AC PO Mirabegron 50 MG DAILY 05/24 1000 AC PO Nebivolol 20 MG DAILY 05/24 1000 AC PO Phenytoin 100 MG Q8 05/23 2200 AC 05/24 PO 0528 Sodium Chloride 1,000 ML Q8H 05/23 1630 DC 05/23 IV 1709 Warfarin Sodium 3 MG .STK-MED ONE 05/23 190 DC PO 05/23 190 Warfarin Sodium 3 MG COUMADIN 1700 ONE 05/23 1815 DC 05/23 PO 05/23 181 1904 Last 24 Hrs of Lab/Anil Results Last 24 Hrs of Labs/Mics: Laboratory Tests 05/23/17 170: Lactic Acid 1.8, CBC w Diff NO MAN DIFF REQ, RBC 4.49, MCV 97.1, MCH 32.4 H, MCHC 33.4, RDW 13.1, MPV 9.0, Gran % 74.8, Lymphocytes % 17.1 L, Monocytes % 6.8, Eosinophils % 1.0, Basophils % 0.3, Absolute Granulocytes 7.4 H, Absolute Lymphocytes 1.7, Absolute Monocytes 0.7 H, Absolute Eosinophils 0.1, Absolute Basophils 0 05/23/17 1530: Phenytoin 18.8 05/23/17 1530: Anion Gap 9, Estimated GFR > 60, BUN/Creatinine Ratio 33.8 H, Glucose 137 H, Calcium 9.6, Total Bilirubin 0.6, AST 25, ALT 33, Alkaline Phosphatase 82, Troponin I < 0.01, Total Protein 7.0, Albumin 4.0, Globulin 3.0, Albumin/ Globulin Ratio 1.3, PT 26.5 H, INR 2.41 H, APTT 37, Urine Opiates Screen < 100 , Methadone Screen < 40, Barbiturate Screen < 60, Ur Phencyclidine Scrn < 6.00, Amphetamines Screen < 100, U Benzodiazepines Scrn < 85, Urine Cocaine Screen < 50, Urine Cannabis Screen 78.40 H, Urine Color YEL, Urine Clarity CLEAR, Urine pH 7.0, Ur Specific [place] 1.010, Urine Protein NEG, Urine Ketones NEG, Urine Nitrite POS H, Urine Bilirubin NEG, Urine Urobilinogen 0.2, Ur Leukocyte Esterase TRACE H, Ur Microscopic SEDIMENT EXAMINED, Urine RBC RARE, Urine WBC 3 -5 H, Ur Epithelial Cells RARE, Urine Bacteria PACKD H, Urine Mucus RARE, Urine Hemoglobin NEG, Urine Glucose NEG Microbiology 05/23 1530 URINE ROUT: Urine Culture - RECD 05/23 1530 BLOOD: Blood Culture - RECD 05/23 1505 BLOOD: Blood Culture - RECD Assessment/Plan Assessment: Ms. Hutchins is an 82-year-old female with past medical history of meningioma followed by Dr. Hand, DVT on warfarin, and hypertension who presents after fall. Problem List: 1. Asymptomatic bacteriuria 2. Fall 3. Bifrontal meningioma 4. Lower extremity edema #Asymptomatic bacteriuria: Patient is asymptomatic. She does have a mildly positive urinalysis and history of recurrent UTIs. Renal ultrasound showed no hydronephrosis. -Stop antibiotics -Follow urine culture #Fall: Patient has a history of a meningioma and has been falling requently in the past couple weeks. Likely related to progression of her tumor in setting of deconditioning. She may be a candidate for radiation but this can be done as an outpatient. -Appreciate neurology recommendations -PT evaluation -Fall precautions -gentle IVF -Hold furosemide #Lower extremity edema: Patient has bilateral lower extremity edema with chronic skin changes. Lower external the ultrasound showed no DVT. -Continue to monitor #Chronic medical problems: -Continue warfarin, daily INR -Continue other home medications DVT prophylaxis with warfarin Regular diet Full code Problem List: 1. UTI (urinary tract infection) Pain Ratin Pain Location: no Pain Goal: Remain pain free Pain Plan: see a/p Tomorrow's Labs & Rationales: inr
[2017-05-24 07:56] LABS: PT 30.1 SEC (9.4-12.5)
[2017-05-24 08:15] LABS: ABSOLUTE BASOPHIL COUNT 0 /CUMM (0.0-0.2); ABSOLUTE EOSINOPHIL COUNT 0.3 /CUMM (0.0-0.7); ABSOLUTE LYMPH COUNT 2.3 /CUMM (1.2-3.4); EOSINOPHIL % 3.8 % (0-5); RED BLOOD CELL CT 3.64 /CUMM (4.20-5.40)
[2017-05-24 08:39] LABS: ABSOLUTE GRANULOCYTE CT 4.2 /CUMM (1.4-6.5); ABSOLUTE MONOCYTE COUNT 0.5 /CUMM (0.10-0.60); BASOPHIL % 0.5 % (0.0-2.0); GRANULOCYTE % 57.5 % (42.2-75.2); MEAN CORPUSCULAR HGB 32.8 PG (27.0-31.0); MEAN CORPUSCULAR HGB CONC 33.9 G/DL (33.0-37.0); MEAN CORPUSCULAR VOLUME 96.8 FL (81.0-99.0); MEAN PLATELET VOLUME 9.4 FL (7.4-10.4); PLATELET COUNT 169 /CUMM (130-400); RBC DISTRIBUTION WIDTH 12.6 % (11.5-14.5); WHITE BLOOD CELL COUNT 7.4 /CUMM (4.8-10.8)
[2017-05-24 08:48] LABS: HEMATOCRIT 35.2 % (37-47)
--- NOTE | 2017-05-24 10:42 | Discharge Summary ---
Visit Information Visit Dates Admission Date: 05/23/17 Discharge Date: 05/26/17 Hospital Course Course Attending Physician: Kenya Juárez MD Primary Care Physician: Anai WILSON,Dennis Dominguez Hospital Course: This is 82-year-old woman with multiple comorbidities who was brought in for worsening confusion and physical deconditioning, gait instability, and recurrent falls. 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 She lives with her daughter. She has limited ambulation and uses a walker; she is non-communicative. Per her daughter after relapse of her tumer in 2016, patient has experienced a progressive decline in her mental/cognitive capacity which was coupled with physical decline, multiple falls, and recurrent UTIs. For the past two weeks family noticed a rapid decline of her progressively declining functional and cognitive capacity. Daughter noticed a change in smell and color of the urine and inform the primary care physician who called in amoxicillin but was yet to pick it up whe patient has another episode of fall when she was trying to stand up from her chair so she was brought to the ER. No head trauma was reported, no seizure like activity and no loss of consciousness. Problem List 1. Bifrontal Meningioma Seems to be progressively worsening. Patient will need Neurolgy follow-up as out patient 2. Unsteady gait/Falls Likely related to progression of her tumor in setting of deconditioning Physical therapy was started in the hospital Patient will be going to the [facility] for rehab 3. 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 Asymptomatic bacteriuria Watched off antibiotics. 5. History of Bilateral LE DVTs Continue home dose of warfarin, INR was 2.99 Monitor INR regularly and dose coumain as needed 6. HTN Continue home medications Complications: none Allergies: Coded Allergies: No Known Allergies (05/24/17) Significant Procedures: EXAM TYPE: CAT - CT HEAD WO IV CONTRAST IMPRESSION: 1. Moderate to severely motion degraded study. 2. Redemonstration of bifrontal meningioma which appears similar compared with 01/16/2017 with surrounding vasogenic edema. 3. Mass effect related to the tumor and edema causes worsening effacement of the bilateral frontal horns. There is 3 mm of rightward midline shift. 4. No intracranial hemorrhage or CT evidence of large territory infarction. 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 Hand) and geriartrician in 1-2 weeks Medications at Discharge Discharge Medications: Continue taking these medications: Amlodipine Besylate (Amlodipine Besylate) 10 MG TABLET 1 Tablet ORAL DAILY Qty = 90 Nebivolol HCl (Bystolic) 10 MG TABLET 1 Tablet ORAL DAILY Qty = 180 Losartan/Hydrochlorothiazide (Losartan-Hctz 100-25 MG Tab) 100 MG-25 MG TABLET 1 Tablet ORAL DAILY Qty = 90 Furosemide (Furosemide) 40 MG TABLET 1 Tablet ORAL DAILY Qty = 90 Potassium Chloride (Potassium Chloride) 20 MEQ TAB.ER.PRT 1 Tablet ORAL DAILY Qty = 180 Mirabegron (Myrbetriq) 50 MG TAB.ER.24H 1 Tablet ORAL DAILY Qty = 4 Dexamethasone (Dexamethasone) 2 MG TABLET 1 Tablet ORAL DAILY BEFORE BREAKFAST Qty = 270 Clonidine HCl (Clonidine HCl) 0.3 MG TABLET 1 Tablet ORAL Every night Qty = 180 Warfarin Sodium (Warfarin Sodium) 3 MG TABLET 1 Tablet ORAL DAILY Warfarin Sodium (Warfarin Sodium) 1 MG TABLET 0.5 Tablet ORAL COUMADIN MOWEFR Doxazosin Mesylate (Doxazosin Mesylate) 2 MG TABLET 1 Tablet ORAL DAILY Qty = 90 Phenytoin Sodium Extended (Phenytoin Sodium Extended) 100 MG CAPSULE 3 Capsule ORAL Every night Qty = 270 Start taking the following new medications: Augmentin (Augmentin 500-125 Tablet) 500 MG-125 MG TABLET 500 Milligram ORAL TWICE DAILY Qty = 3 No Refills Comments: Last dose to be taken on 05/27/17 Copies To: Dennis Dobson
[2017-05-24 14:41] VITALS: BP 118/60
[2017-05-24 21:24] VITALS: BP 106/50
[2017-05-24 21:47] VITALS: BP 110/64
[2017-05-25 05:51] VITALS: BP 122/60
--- NOTE | 2017-05-25 08:10 | PN- Housestaff ---
Daniella LIU,Jan 05/25/17 0810: Subjective Follow-up For: UTI, fall Subjective: Patient was seen and examined at bedside. She was resting comfortably. She had no acute events overnight. She currently offers no complaints but is a poor historian. Nurse reports that she is incontinent of urine. Review of Systems Constitutional: Denies: chills, fever. EENTM: Reports: no symptoms. Cardiovascular: Reports: no symptoms. Respiratory: Reports: no symptoms. Gastrointestinal: Reports: no symptoms. Genitourinary: Reports: see HPI. Musculoskeletal: Reports: no symptoms. Objective Last 24 Hrs of Vital Signs/I&O Vital Signs Date Time Temp Pulse Resp B/P B/P Pulse O2 O2 Flow FiO2 Mean Ox Delivery Rate 05/25 0551 97.8 59 20 122/60 96 Room Air 05/24 2152 68 110/64 05/24 2147 110/64 05/244 98.1 68 17 106/50 94 Room Air 05/24 1441 97.7 60 20 118/60 94 Room Air 05/24 1102 74 130/70 05/24 0956 Room Air 05/24 0946 Room Air 05/24 0921 74 130/60 05/24 0921 74 130/60 05/24 0920 74 130/60 Intake & Output 05/25 1600 05/25 0800 05/25 0000 Intake Total 840 485 Output Total Balance 840 485 Intake, IV 600 245 Intake, Oral 240 240 Number 0 0 Bowel Movements Physical Exam General Appearance: Alert, Cooperative, No Acute Distress Skin Temp/Moisture Exam: Warm/Dry Sepsis Skin Exam (color): Normal for Ethnicity Cardiovascular: Regular Rate, Normal S1, Normal S2 Lungs: Clear to Auscultation, Normal Air Movement Abdomen: Normal Bowel Sounds, Soft, No Tenderness Extremities: BLE edema, 2+ pitting edema Current Medications: Current Medications Sig/James Start time Last Medication Dose Route Stop Time Status Admin Amlodipine Besylate 10 MG DAILY 05/24 1000 AC 05/24 PO 0921 Ceftriaxone Sodium 1,000 MG Q12 05/24 1000 CAN IV Clonidine 0.3 MG BID 05/23 2200 AC 05/24 PO 2152 Dexamethasone 2 MG DAILY 05/24 1000 AC 05/24 PO 0920 Dextrose/Sodium 1,000 ML Q13H 05/23 1745 AC 05/25 Chloride IV 0452 Doxazosin Mesylate 2 MG AT BEDTIME 05/23 2200 AC 05/24 PO 2152 Hydrochlorothiazide 25 MG DAILY 05/24 1000 AC 05/24 PO 0921 Losartan Potassium 100 MG DAILY 05/24 1000 AC 05/24 PO 0921 Mirabegron 50 MG DAILY 05/24 1000 AC 05/24 PO 0921 Nebivolol 20 MG DAILY 05/24 1000 AC 05/24 PO 1102 Phenytoin 100 MG Q8 05/23 2200 AC 05/25 PO 0452 Warfarin Sodium 3 MG COUMADIN 1700 05/24 1700 DC 05/24 PO 05/24 2359 1700 Last 24 Hrs of Lab/Anil Results Last 24 Hrs of Labs/Mics: Laboratory Tests 05/25/17 0618: PT Pending, INR Pending Assessment/Plan Assessment: Ms. Hutchins is an 82-year-old female with past medical history of meningioma followed by Dr. Hand, DVT on warfarin, and hypertension who presents after fall. Problem List: 1.UTI 2. Fall 3. Bifrontal meningioma 4. Lower extremity edema #UTI : Patient is asymptomatic however it is possible that she not be able to articulate her symptoms, she has been incontinent. She does have a mildly positive urinalysis and history of recurrent UTIs. Renal ultrasound showed no hydronephrosis. Urine culture positive for Klebsiella pneumonia -Start Augmentin for 3 day course #Fall: Patient has a history of a meningioma and has been falling requently in the past couple weeks. Likely related to progression of her tumor in setting of deconditioning. She may be a candidate for radiation but this can be done as an outpatient. -Follow up neurology recommendations -PT evaluation -Fall precautions -gentle IVF -Hold furosemide #Lower extremity edema: Patient has bilateral lower extremity edema with chronic skin changes. Lower external the ultrasound showed no DVT. -Continue to monitor #Chronic medical problems: -Continue warfarin, daily INR, INR was mildly supratherapeutic today will decrease dose of warfarin and continue to monitor -Continue other home medications DVT prophylaxis with warfarin Regular diet Full code Problem List: 1. Weakness 2. 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 She is more confused, singing in her speech, and having difficulty ambulating (uses a walker at home, but is unsteady now). Neuro exam is normal. 1. Meningioma 2. Unsteady gait 3. 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
[2017-05-25 08:30] LABS: PT 34.2 SEC (9.4-12.5)
[2017-05-25 14:51] VITALS: BP 116/56
[2017-05-25 22:21] VITALS: BP 116/62
[2017-05-26 06:46] VITALS: BP 130/70
[2017-05-26 08:10] LABS: ABSOLUTE BASOPHIL COUNT 0 /CUMM (0.0-0.2); ABSOLUTE EOSINOPHIL COUNT 0.3 /CUMM (0.0-0.7); ABSOLUTE GRANULOCYTE CT 3.6 /CUMM (1.4-6.5); ABSOLUTE LYMPH COUNT 2.5 /CUMM (1.2-3.4); ABSOLUTE MONOCYTE COUNT 0.6 /CUMM (0.10-0.60); BASOPHIL % 0.5 % (0.0-2.0); EOSINOPHIL % 4.8 % (0-5); GRANULOCYTE % 51.3 % (42.2-75.2); HEMATOCRIT 37.6 % (37-47); MEAN CORPUSCULAR HGB 32.8 PG (27.0-31.0); MEAN CORPUSCULAR HGB CONC 33.7 G/DL (33.0-37.0); MEAN CORPUSCULAR VOLUME 97.4 FL (81.0-99.0); MEAN PLATELET VOLUME 8.7 FL (7.4-10.4); PLATELET COUNT 190 /CUMM (130-400); RBC DISTRIBUTION WIDTH 12.8 % (11.5-14.5); RED BLOOD CELL CT 3.86 /CUMM (4.20-5.40)
--- NOTE | 2017-05-26 08:17 | PN- Housestaff ---
Subjective Follow-up For: UTI, fall Subjective: Patient was seen and examined at bedside. She was resting comfortably. She had no acute events overnight. No new complaints Review of Systems Constitutional: Denies: chills, fever. EENTM: Reports: no symptoms. Cardiovascular: Reports: no symptoms. Respiratory: Reports: no symptoms. Gastrointestinal: Reports: no symptoms. Genitourinary: Reports: no symptoms. Musculoskeletal: Reports: no symptoms. Skin: Reports: no symptoms. Objective Last 24 Hrs of Vital Signs/I&O Vital Signs Date Time Temp Pulse Resp B/P B/P Pulse O2 O2 Flow FiO2 Mean Ox Delivery Rate 05/26 0646 98.0 64 20 130/70 94 Room Air 05/25 2221 98.9 70 19 116/62 95 Room Air 05/25 2117 70 116/62 05/25 1451 97.6 65 18 116/56 95 05/25 1059 78 132/80 Intake & Output 05/26 1600 05/26 0800 05/26 0000 Intake Total 250 750 Output Total Balance 250 750 Intake, IV 10 Intake, Oral 240 750 Number 0 Bowel Movements Physical Exam General Appearance: Alert, Cooperative, No Acute Distress Skin Temp/Moisture Exam: Warm/Dry Cardiovascular: Regular Rate, Normal S1, Normal S2 Lungs: Clear to Auscultation, Normal Air Movement Abdomen: Normal Bowel Sounds, Soft, No Tenderness Neurological: Normal Tone, Sensation Intact, perseverating/humming constantly but answers questions appropriately Extremities: 2+pitting edema of the distal lower extremities bilaterally, with hyperkeratotic changes Current Medications: Current Medications Sig/James Start time Last Medication Dose Route Stop Time Status Admin Amlodipine Besylate 10 MG DAILY 05/24 999 AC 05/25 PO 105 Amoxicillin/ 500 MG BID 05/25 1117 AC 05/25 Clavulanate Potassium PO 2114 Budesonide/ 2 PUF BID 05/25 111 AC 05/25 Formoterol Fumarate INH 2114 Clonidine 0.3 MG BID 05/23 2199 AC 05/25 PO 211 Dexamethasone 2 MG DAILY 05/24 1000 AC 05/25 PO 1100 Dextrose/Sodium 1,000 ML Q13H 05/23 1745 DC 05/25 Chloride IV 0452 Doxazosin Mesylate 2 MG AT BEDTIME 05/23 2199 AC 05/25 PO 211 Hydrochlorothiazide 25 MG DAILY 05/24 999 AC 05/25 PO 1059 Losartan Potassium 100 MG DAILY 05/24 1000 AC 05/25 PO 1100 Mirabegron 50 MG DAILY 05/24 1000 AC 05/25 PO 1059 Nebivolol 20 MG DAILY 05/24 1000 AC 05/25 PO 1059 Non-Formulary 0 SEE ADMIN CRITERIA 05/25 1115 DC Medication ANY Nystatin 1 TAMMY BID PRN 05/25 1100 AC 05/25 TOP 1341 Phenytoin 100 MG Q8 05/23 2200 AC 05/26 PO 0524 Warfarin Sodium 2.5 MG COUMADIN 1700 ONE 05/25 1700 DC 05/25 PO 05/25 1701 1704 Last 24 Hrs of Lab/Anil Results Last 24 Hrs of Labs/Mics: Laboratory Tests 05/26/17 0728: PT Pending, INR Pending, CBC w Diff Pending, WBC Pending, RBC Pending, Hgb Pending, Hct Pending, MCV Pending, MCH Pending, MCHC Pending, RDW Pending, Plt Count Pending, MPV Pending Assessment/Plan Assessment: Ms. Hutchins is an 82-year-old female with past medical history of meningioma followed by Dr. Hand, DVT on warfarin, and hypertension who presents after fall. Problem List: 1.UTI 2. Fall 3. Bifrontal meningioma 4. Lower extremity edema #UTI : Patient is asymptomatic however it is possible that she not be able to articulate her symptoms, she has been incontinent. She does have a mildly positive urinalysis and history of recurrent UTIs. Renal ultrasound showed no hydronephrosis. Urine culture positive for Klebsiella pneumonia -DC with instructions to complete a total of 3 day course of augmentin #Fall: Patient has a history of a meningioma and has been falling requently in the past couple weeks. Likely related to progression of her tumor in setting of deconditioning. She may be a candidate for radiation but this can be done as an outpatient. -DC with instructions to follow up with Dr. Hand as an outpatient -Fall precautions -gentle IVF -Stable for DC #Lower extremity edema: Patient has bilateral lower extremity edema with chronic skin changes. Lower external the ultrasound showed no DVT. -Continue to monitor #Chronic medical problems: -Continue warfarin, daily INR, INR was mildly supratherapeutic today will decrease dose of warfarin and continue to monitor -Continue other home medications DVT prophylaxis with warfarin Regular diet Full code Problem List: 1. UTI (urinary tract infection) 2. Weakness Pain Ratin Pain Location: pain pathway Pain Goal: Remain pain free Pain Plan: pain pathwya Tomorrow's Labs & Rationales: none Discharge Plan Discharge Disposition: STR/NH Stable for Discharge? Yes Anticipated Discharge (Day): today If Discharged Today/In 24 Hrs: enter antc discharge ord, W-10/discharge paper done, DC summary done, CMR done
[2017-05-26 08:27] LABS: PT 32.9 SEC (9.4-12.5)
[2017-05-26] MEDS ORDERED: AUGMENTIN 500-1 EACH PO (12:23)
--- NOTE | 2017-05-26 12:25 | Patient Discharge Instructions ---
Discharge Instructions General Discharge Information You were seen/treated for: Cognitive decline UTI Special Instructions: Take all meds as directed, follow up with Dr. Hand as an outpatient, follow up with your primary care physician within 1 week of discharge. If you should suffer a severe fall, or notice any facial droop, numbness, tingling or weakness call your doctor or return to the ER. Acute Coronary Syndrome Inclusion Criteria At DC or during hospital stay patient has or had the following: ACS DIAGNOSIS No Discharge Core Measures Meds if any: Prescribed or Continued at Discharge Meds if any: NOT Prescribed or Continued at Discharge Congestive Heart Failure Inclusion Criteria At DC or during hospital stay patient has or had the following: CHF DIAGNOSIS No Discharge Core Measures Meds if any: Prescribed or Continued at Discharge Meds if any: NOT Prescribed or Continued at Discharge Cerebrovascular accident Inclusion Criteria At DC or during hospital stay patient has or had the following: CVA/TIA Diagnosis No Discharge Core Measures Meds if any: Prescribed or Continued at Discharge Meds if any: NOT Prescribed or Continued at Discharge Venous thromboembolism Inclusion Criteria VTE Diagnosis No VTE Type NONE VTE Confirmed by (Test) NONE Discharge Core Measures - Per Current guidelines, there needs to be overlap - treatment for the first 5 days of Warfarin therapy. - If discharged on Warfarin prior to 5 days of - overlap therapy, the patient will need to be - assessed for post discharge needs including - *Post discharge parental anticoagulation - *Warfarin and/or parental anticoagulation education - *Follow up date to check INR post discharge At least 5 days overlap therapy as Inpatient No Meds if any: Prescribed or Continued at Discharge Note: Overlap Therapy is Warfarin and Anticoagulant Meds if any: NOT Prescribed or Continued at Discharge
--- NOTE | 2017-05-26 13:23 | PN- Att Addend ---
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 She is more confused, singing in her speech, and having difficulty ambulating (uses a walker at home, but is unsteady now). Neuro exam is normal. 1. Meningioma 2. Unsteady gait 3. 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
[2017-05-26 14:45] VITALS: BP 130/70
[2017-05-26 14:54] VITALS: BP 102/54
== END 2017-05-26 15:30 | DRG 54 ==
LOC: ERH 13:36 → 2NB 17:00 → ERHI 17:00 → ENRESERV 17:23 → ENTRNSPT 18:00 → EDTRNSPTSTS 18:03 → 2NB 18:11 → CMPTRNSPT 18:15 → 2NB 05-24 09:01 → ENPENDDIS 05-26 13:06 → 2NB 05-26 15:30
PROVIDERS: Dermatology; Emergency Medicine; Internal Medicine; Student in an Organized Health Care Education/Training Program
DX: D32.0 Benign neoplasm of cerebral meninges (principal); G93.6 Cerebral edema; F03.90 Unspecified dementia, unspecified severity, without behavioral disturbance, psychotic disturbance, mood disturbance, and anxiety; N39.0 Urinary tract infection, site not specified; Z68.42 Body mass index [BMI] 45.0-49.9, adult; E66.9 Obesity, unspecified; R26.2 Difficulty in walking, not elsewhere classified; R60.9 Edema, unspecified; R60.0 Localized edema; Z79.01 Long term (current) use of anticoagulants; R62.7 Adult failure to thrive; R79.89 Other specified abnormal findings of blood chemistry; N28.89 Other specified disorders of kidney and ureter; I10 Essential (primary) hypertension; Z86.718 Personal history of other venous thrombosis and embolism; Z91.81 History of falling
CPT/HCPCS: 2NBSP; 36415; 36592; 71045; 76775; 80307; 81001; 82436; 87040; 87086; 93005; 93010; 93970; 97110-GO; 97163-GP; 97530-GO; J0696; J1650; J3490; J7042